=== PATIENT | female | born 1970 | race Caucasian/White ===

== ENCOUNTER 2022-03-03 15:41 | Emergency (ER) | payer OTHER ==
[2022-03-03 16:24] LABS: HEMOGLOBIN 14.4 gm/dl (12.3-15.3); RED BLOOD COUNT 4.25 M/UL (4.00-5.10); WHITE BLOOD COUNT 8.6 K/UL (4.5-11.0)
[2022-03-03 16:45] LABS: BUN/CREATININE RATIO 13 (0-10)
[2022-03-03] MEDS ORDERED: HYDROCODON-ACE1 EAC4 PO ×2 (18:24→19:31)
== END 2022-03-03 19:45 | disposition home or self-care (01) ==
LOC: ER1 15:41
PROVIDERS: Emergency Medicine
DX: N13.2 Hydronephrosis with renal and ureteral calculous obstruction (principal); E87.6 Hypokalemia
CPT/HCPCS: 80053; 81001; 85025; 96374; 96375; 99284; J1885; J2270; J2405